=== PATIENT | female | born 1990 | race Caucasian/White ===

== ENCOUNTER 2018-09-18 09:55 | Emergency (ER) | payer OTHER ==
[~2018-09-18] VITALS: Ht 165.1 cm; Wt 71.9 kg
[2018-09-18 09:56] VITALS: BP 120/66; PULSE 82; RESP 18; Ht 165.1 cm; Wt 71.9 kg
[2018-09-18] MEDS ORDERED: CLIN45GE TP (10:13)
[2018-09-18] MEDS ORDERED: DOXY100T20 PO (10:13)
--- NOTE | 2018-09-18 11:07 | ERD ---
ER Documentation Chief Complaint Chief Complaint rash x 1 week has allergic reaction to nuts and heavy period HPI 28-year-old female presenting with a rash x1 week. Patient states that she had all meds 1 week ago and feels that her rash on her face is due to allergic reaction however she has multiple small bumps that are painful. She is also having a heavy menses. Denies other medical problems. Denies any trouble swallowing or lip swelling. Took Benadryl 4 days ago with no alleviation of symptoms. Is having a heavy period. Denies medical problems. NKDA. Surgical history denies. Social history denies ROS All systems reviewed and are negative except as per history of present illness. Medications Home Meds Active Scripts Clindamycin Phos/Benzoyl Perox (Duac Gel) 45 Gm Gel.sr.gm., 1 APPLIC TP BID, #1 TUB Prov:TRUDY YODER PA-C 09/18/18 Doxycycline Hyclate* (Doxycycline Hyclate*) 100 Mg Tablet.dr, 100 MG PO BID for 7 Days, TAB Prov:TRUDY YODER PA-C 09/18/18 Allergies Allergies: Coded Allergies: No Known Allergy (Unverified , 09/14/13) PMhx/Soc Medical and Surgical Hx: pt denies Medical Hx, pt denies Surgical Hx Hx Alcohol Use: No Hx Substance Use: No Hx Tobacco Use: No Smoking Status: Never smoker FmHx Family History: No diabetes, No coronary disease, No other Physical Exam Vitals Vital Signs Date Temp Pulse Resp B/P (MAP) Pulse Ox O2 O2 Flow FiO2 Time Delivery Rate 09/18/18 98.0 82 18 120/66 98 09:56 (84) Physical Exam GENERAL: The patient is well-appearing, well-nourished, in no acute distress HEENT: Atraumatic. Conjunctivae are pink. Pupils equal, round, and reactive to light. There is no scleral icterus. Tympanic membranes clear bilaterally. Oropharynx clear. CHEST: Clear to auscultation bilaterally. There are no rales, wheezes or rhonchi. HEART: Regular rate and rhythm. No murmurs, clicks, rubs or gallops. SKIN: Multiple small erythematous spots noted on face with underlying pustules. No vesicles. No urticaria Procedures/MDM MDM: 28-year-old female presenting with rash to face. Patient's rash appears to acne pustules. I have low suspicion for bacterial, viral or parasitic infection. I have low suspicion for allergic reaction or urticaria. Patient is discharged with strict ER precautions and told to follow-up with primary care within 1 to 2 days for close evaluation. Patient is told symptoms change or w orsen to return immediately to the ER. All questions answered at discharge Departure Diagnosis: Primary Impression: Acne Condition: Stable Patient Instructions: Acne Referrals: [facility] YOU HAVE RECEIVED A MEDICAL SCREENING EXAM AND THE RESULTS INDICATE THAT YOU DO NOT HAVE A CONDITION THAT REQUIRES URGENT TREATMENT IN THE EMERGENCY DEPARTMENT. FURTHER EVALUATION AND TREATMENT OF YOUR CONDITION CAN WAIT UNTIL YOU ARE SEEN IN YOUR DOCTORS OFFICE WITHIN THE NEXT 1-2 DAYS. IT IS YOUR RESPONSIBILITY TO MAKE AN APPOINTMENT FOR FOLOW-UP CARE. IF YOU HAVE A PRIMARY DOCTOR --you should call your primary doctor and schedule an appointment IF YOU DO NOT HAVE A PRIMARY DOCTOR YOU CAN CALL OUR PHYSICIAN REFERRAL HOTLINE AT IF YOU CAN NOT AFFORD TO SEE A PHYSICIAN YOU CAN CHOSE FROM THE FOLLOWING [facility] [address] [facility] [facility] [address] [facility] [facility] [address] [facility] [facility] [address] [facility]. [facility] [address]. [facility]. [address] Additional Instructions: FOLLOW UP WITH YOUR PRIMARY CARE PHYSICIAN TOMORROW.Return to this facility if you are not improving as expected. TRUDY YODER PA-C Sep 18, 2018 11:07
== END 2018-09-18 10:21 | disposition home or self-care (01) ==
LOC: FTE 09:55
DX: L70.9 Acne, unspecified (principal)
CPT/HCPCS: 99283